=== PATIENT | female | born 1950 | race Caucasian/White ===

== ENCOUNTER → 2017-02-23 | Outpatient (CLI) | payer MEDICARE ==
--- NOTE | ~2017-02-23 | ST ---
Unit #: [id number] #: [id number] Patient: PORSCHE COATS [id number] [address] [address] [id number] O MR#: [id number] NAME: PORSCHE COATS. : 1950 SEX: F STUDY DATE/TIME: 02/23/2017 UNIT: [facility] ROOM: STUDY DESCRIPTION: Attending Physician: Ale Yepez M.D. Primary Care Physician: Ale Yepez M.D. CARDIOLOGY REPORT EXAM Treadmill stress test. ORDERING PHYSICIAN Dr. Ale Yepez. INDICATIONS Chest discomfort. SUMMARY Patient exercised on Jean protocol for 8 minutes and 50 seconds, achieving a work level METs of 10.1. Patient's resting blood pressure 140/82 mmHg which increased to 260/90 mmHg. Patient's resting heart rate was 62 beats per minute which increased to 141 beats per minute, represents 91% of the maximum age-predicted heart rate. Patient's resting ECG shows normal sinus rhythm with normal ST segments. Patient's stress ECG shows sinus tachycardia with nonspecific ST segment changes. There is no ventricular, supraventricular ectopy noted. Artifact present while exercising, makes it difficult to interpret the ECG portion. CONCLUSION 1. Good exercise tolerance. 2. Hypertensive response to exercise. 3. Cannot exclude abnormality on the ECG portion of the stress test due to artifact. 4. Clinical correlation needed, would recommended alternative stress testing either with echo images or nuclear images. Dictated by... Abbie Alvarez/joanna TD: 02/23/2017 16:59 JOB #: [id number] CC: Ale Yepez M.D. Unit #: [id number] #: [id number] Patient: PORSCHE COATS CARDIOLOGY REPORT Page 1 of 1 X SANA GROVES MD CARDIOLOGY REPORT
== END | disposition home or self-care (01) ==
LOC: CEKG 07:29
DX: R07.9 Chest pain, unspecified (principal); Z82.49 Family history of ischemic heart disease and other diseases of the circulatory system
CPT/HCPCS: 93017

== ENCOUNTER → 2017-03-05 | Outpatient (CLI) | payer MEDICARE, OTHER ==
--- NOTE | ~2017-03-05 | TH ---
Unit #: [id number] #: [id number] Patient: PORSCHE COATS [id number] [address] [address] [id number] O MR#: [id number] NAME: PORSCHE COATS. : 1950 SEX: F STUDY DATE/TIME: 03/05/2017 UNIT: [facility] ROOM: STUDY DESCRIPTION: Attending Physician: Ale Yepez M.D. Referring Physician: Ale Yepez M.D. Primary Care Physician: Ale Yepez M.D. CARDIOLOGY REPORT EXAM Stress nuclear and ECG combined. INDICATION Possible arrhythmia with history of premature atherosclerotic disease. SUMMARY The patient exercised on a Jean protocol to maximal effort. The rest and stress ECG showed no diagnostic ST shifts, although there was considerable baseline artifact with stress. Patient completed 9 minutes of exercise. Heart rate increased from 65 to 142 (91%), and blood pressure increased from 180/95 to 199/97. There were no dysrhythmias or chest pain noted. Technetium 99 Cardiolite 11.39 and 34.2 mCi was injected at rest and stress, respectively. Appropriate views were obtained. FINDINGS The study is adequate. There is no significant patient motion noted during acquisition of the rest or stress images. There is no significant lung uptake, LV or RV enlargement. There is considerable breast attenuation artifact. The summed stress score is zero. Gated perfusion wall motion analysis demonstrates normal wall motion throughout the myocardium with end-diastolic volume 60 mL and ejection fraction greater than 65%. Perfusion images demonstrate apical thinning with breast attenuation artifact but overall normal perfusion at both rest and stress. Intestinal artifact is present at both rest and stress. IMPRESSION 1. Very good exercise capacity based on the patient's age. 2. Normal heart rate and blood pressure responses. 3. Normal stress ECG. 4. Normal nuclear study with no ischemia or infarction. 5. Normal wall motion with excellent ejection fraction. 6. Small left ventricle size which would suggest either small body habitus or low intravascular volume. 1. Dictated by... Len Hua M.D. JOSE F/zohra Unit #: [id number] #: [id number] Patient: PORSCHE COATS TD: 03/05/2017 18:14 JOB #: [id number] CARDIOLOGY REPORT Page 1 of 1 X Len Hua MD CARDIOLOGY REPORT
== END | disposition home or self-care (01) ==
LOC: CNUC 07:16
DX: R07.9 Chest pain, unspecified (principal); R94.31 Abnormal electrocardiogram [ECG] [EKG]; R06.02 Shortness of breath; I10 Essential (primary) hypertension; I25.10 Atherosclerotic heart disease of native coronary artery without angina pectoris; E11.9 Type 2 diabetes mellitus without complications
CPT/HCPCS: 78452; 93017; A9500